=== PATIENT | female | born 1950 | race Caucasian/White ===

== ENCOUNTER → 2023-09-07 | Outpatient (CLI) | payer MEDICARE, BC ==
--- NOTE | 2023-09-07 11:03 | FL ---
EXAMINATION TYPE: FL barium swallow DATE OF EXAM: 09/07/2023 CLINICAL INDICATION: 73-year-old female R1 3.10, unspecified dysphagia. Patient with history of gastr ectomy and hiatal hernia repair 11-13 years ago experiencing difficulty swallowing with food sticking in the mid chest with reflux. COMPARISON: Total Fluoroscopy Time: 1 minute 56 seconds dap 549.40 mGycm2 49 images obtained. FINDINGS: The swallowing mechanism is normal and hypopharyngeal anatomy is preserved. There is normal course and caliber of the thoracic esophagus but with moderate tertiary peristaltic w aves distal half of the esophagus. We note a sliding hiatal hernia which is moderate to large in size. When the patient is prone/supine, it consists of nearly 2/3 of the stomach in the lower chest. No abnormal narrowing. Given single contrast technique, no evident suspicious filling defect or mucos al lesion is encountered. There is severe gastroesophageal reflux demonstrated. IMPRESSION: 1. Moderate to large hiatal hernia. This is a sliding hiatal hernia which can encompass nearly 2/3 of the stomach. Postsurgical change of previous sleeve gastrectomy. Severe GERD. 2. Mild to moderate esophageal dysmotility. No stricture or obvious other abnormality on single contr ast study.
== END | disposition home or self-care (01) ==
LOC: RADUSWWP 08:43
PROVIDERS: ATTEND Family Medicine
DX: K44.9 Diaphragmatic hernia without obstruction or gangrene (principal); K22.4 Dyskinesia of esophagus; K21.9 Gastro-esophageal reflux disease without esophagitis; R13.10 Dysphagia, unspecified; Z98.84 Bariatric surgery status
CPT/HCPCS: 74220

== ENCOUNTER → 2023-12-27 | Outpatient (CLI) | payer MEDICARE, BC ==
[2023-12-27 16:34] LABS: INR 0.9 (<1.2); Partial Thromboplastin Time 23.4 sec (22.0-30.0); Prothrombin Time 10.1 sec (10.0-12.5)
[2023-12-28 02:19] LABS: HCT 41.3 % (37.2-46.3); HGB 13.3 g/dL (12.0-15.0); MCH 31.8 pg (27.0-32.0); MCHC 32.2 g/dL (32.0-37.0); MCV 98.8 FL (80.0-97.0); Mean Platelet Volume 11.5 FL (9.5-12.2); NRBC Per 100 WBC 0 X 10*3/uL (0.00-0.01); Platelet Count 161 X 10*3/uL (140-440); RBC 4.18 X 10*6/uL (4.10-5.20); RDW 15.9 % (11.5-14.5); WBC 7.42 X 10*3/uL (4.50-10.00)
[2023-12-28 03:34] LABS: Prealbumin 20.1 mg/dL (18.0-42.0)
[2023-12-28 04:37] LABS: ALT 14 U/L (8-44); AST 19 U/L (13-35); Albumin 3.9 g/dL (3.8-4.9); Albumin/Globulin Ratio 1.95 Ratio (1.60-3.17); Alkaline Phosphatase 88 U/L (41-126); BUN/Creat Ratio 23.38 Ratio (12.00-20.00); Blood Urea Nitrogen 18.7 mg/dL (9.0-27.0); Calcium 8.8 mg/dL (8.7-10.3); Carbon Dioxide 20.5 mmol/L (21.6-31.8); Chloride 110 mmol/L (96-109); Chol/HDL Ratio 3.49 Ratio; Glucose 88 mg/dL (70-110); LDL Cholesterol,Calculated 124.2 mg/dL (0.0-131.0); Phosphorus 3.1 mg/dL (2.4-5.1); Sodium 143 mmol/L (135-145); Total Bilirubin <0.2 mg/dL (0.3-1.2); Total Protein 5.9 g/dL (6.2-8.2)
[2023-12-28 05:09] LABS: % Iron Saturation 15.47 (12.00-45.00); Iron 54 UG/DL (50-170); Total Iron Binding Capacity 349 UG/DL (228-460)
[2023-12-29 11:37] LABS: Vitamin A 50 ug/dL (38-106)
[2023-12-29 11:44] LABS: Vit B1(Thiamine) 45 ug/L (38-122)
[2023-12-30 10:19] LABS: Anabasine Urine <2.0 ng/mL (<2.0)
[2024-01-04 19:38] LABS: Selenium 77 mcg/L (63-160)
[2024-01-08 17:49] LABS: Zinc, Serum 70 ug/dL (60-130)
== END ==
LOC: LABPAT 15:11
PROVIDERS: ATTEND Surgery Plastic and Reconstructive Surgery
DX: E89.1 Postprocedural hypoinsulinemia (principal); E66.01 Morbid (severe) obesity due to excess calories; D50.8 Other iron deficiency anemias; K91.2 Postsurgical malabsorption, not elsewhere classified; E44.0 Moderate protein-calorie malnutrition; E45 Retarded development following protein-calorie malnutrition; E55.9 Vitamin D deficiency, unspecified; K74.1 Hepatic sclerosis; N19 Unspecified kidney failure; T56.894A Toxic effect of other metals, undetermined, initial encounter; K50.90 Crohn's disease, unspecified, without complications; E46 Unspecified protein-calorie malnutrition
CPT/HCPCS: 80053; 80061; 80307; 80323; 82306; 82525; 82607; 82728; 82746; 83036; 83540; 83550; 83735; 83970; 84100; 84134; 84255; 84425; 84443; 84590; 84630; 85027; 85610; 85730; 93005

== ENCOUNTER → 2023-12-27 | Outpatient (CLI) | payer MEDICARE, BC ==
[2023-12-27 14:23] VITALS: BP 142/79; PULSE 52; RESP 16; TEMP 98.1; BMI 38.6
--- NOTE | 2023-12-27 14:54 | P.HPBAR ---
Bariatric H&P - History & Physicial H&P Date: 12/27/23 History & Physicial: Visit/CC: new pt Patient initial contact: Initial weight: 98.883 kg Initial weight in pounds: 218.00 Height: 5 ft 3 in Initial BMI: 38.6 Last weight: Current weight: 98.883 kg Current weight in pounds: 218.00 Current BMI: 38.6 [place] body weight (based on NIH guidelines): 52.163 kg Excess body weight loss: 0.0% The patient is a 73 year-old F who presents for Bariatric Assessment. She has prior sleeve and has large hiatal hernia with stomach incorporated in chest. Highest weight is 275. Lowest 175 pounds. She is 40 pounds overweight. She has new PCP. She has much troubles with eating. She has treid weight watchers. Full labs and urine. Recommend dietitian consult. FU after labs. EKG advised. Will need hiatal hernia repair. She made prayer quilts for staff. Past Medical History Past Medical History: GERD/Reflux, Osteoarthritis (OA) Additional Past Medical History / Comment(s): kidney stones, Ureteral Stent with removal, hiatal hernia History of Any Multi-Drug Resistant Organisms: None Reported Past Surgical History: Bariatric Surgery, Cholecystectomy, Tubal Ligation Additional Past Surgical History / Comment(s): cataracts sx both eyes, skin disorder removed from left eye, Gastric sleeve 04-09-2012, Lithotripsy with ureteral stent and removal, Pain Procedures- Lumbar NATI. Past Anesthesia/Blood Transfusion Reactions: Postoperative Nausea & Vomiting (PONV) Past Psychological History: No Psychological Hx Reported Smoking Status: Former smoker Past Alcohol Use History: Rare Past Drug Use History: None Reported - Past Family History Mother Family Medical History: Hypertension Father Additional Family Medical History / Comment(s): Leukemia Surgical - Exam Vital Signs Temp Pulse Resp BP 98.1 F 52 L 16 142/79 12/27/23 14:04 12/27/23 14:04 12/27/23 14:04 12/27/23 14:04 Bariatric Checklist Checklist: Plan: Checklist: EGD: 1. Hiatal hernia: 2. H. Pylori: HgbA1c: Vitamin D: Smoking: Primary care physician referral: ambreen villeda Psychiatry clearance: Cardiology clearance: Sleep study: Diet journal: VTE risk score: VTE risk level: Rehab needs at discharge:
== END ==
LOC: BARWHC3 13:31
PROVIDERS: ATTEND Surgery Plastic and Reconstructive Surgery
DX: E66.01 Morbid (severe) obesity due to excess calories (principal); Z68.38 Body mass index [BMI] 38.0-38.9, adult; Z88.5 Allergy status to narcotic agent; Z88.2 Allergy status to sulfonamides; Z88.1 Allergy status to other antibiotic agents
CPT/HCPCS: 99211

== ENCOUNTER → 2024-01-08 | Outpatient (CLI) | payer MEDICARE, BC ==
[2024-01-08 13:42] VITALS: BP 148/82; PULSE 72; RESP 16; TEMP 98.2
[2024-01-08] MEDS: CYANOCOBALAMIN 1,000 MCG/ML 1 ML VIAL IM NR (13:42)
== END ==
LOC: PROCWHC3 12:58
PROVIDERS: ATTEND Surgery Plastic and Reconstructive Surgery
DX: D51.9 Vitamin B12 deficiency anemia, unspecified (principal)
CPT/HCPCS: 96372

== ENCOUNTER → 2024-01-08 | Outpatient (CLI) | payer MEDICARE, BC ==
[2024-01-08 13:55] VITALS: BMI 38.0
== END | disposition home or self-care (01) ==
LOC: BARWHC3 12:49
PROVIDERS: ATTEND Surgery Plastic and Reconstructive Surgery
DX: E66.01 Morbid (severe) obesity due to excess calories (principal); Z88.2 Allergy status to sulfonamides; Z88.1 Allergy status to other antibiotic agents; Z88.5 Allergy status to narcotic agent; Z68.38 Body mass index [BMI] 38.0-38.9, adult
CPT/HCPCS: 97802

== ENCOUNTER → 2024-01-17 | Outpatient (CLI) | payer MEDICARE, BC ==
[2024-01-17 14:48] VITALS: BP 144/92; PULSE 84; RESP 16; TEMP 97.7; BMI 38.2
--- NOTE | 2024-01-17 15:07 | P.BASOAP ---
Subjective Progress Note Date: 01/17/24 She has a large hiatal hernia and had troubles eating meat. Labs reviewed. EKG is normal. She needs a hiatal hernia repair for incarcerated stomach.She is elevated risk. Vitamin D check. SHe got Vitamin B12. Objective - Vital Signs Vital signs: Vital Signs Temp 97.7 F 01/17/24 14:39 Pulse 84 01/17/24 14:39 Resp 16 01/17/24 14:39 BP 144/92 01/17/24 14:39 Pulse Ox FiO2 Intake & Output 01/16/24 01/17/24 01/17/24 18:59 06:59 18:59 Weight 97.976 kg Assessment/Plan Plan: Date: 01/17/24 Initial Weight: 98.883 kg Initial BMI: 38.6 Current Weight: 97.976 kg Current BMI: 38.2 Type of Surgery: Total Volume in Band: Previous Volume: Volume Removed: Volume Added: Band Size:
== END ==
LOC: BARWHC3 13:35
PROVIDERS: ATTEND Surgery Plastic and Reconstructive Surgery
DX: E66.01 Morbid (severe) obesity due to excess calories (principal); K44.9 Diaphragmatic hernia without obstruction or gangrene; Z68.38 Body mass index [BMI] 38.0-38.9, adult; Z88.2 Allergy status to sulfonamides; Z88.5 Allergy status to narcotic agent; Z88.1 Allergy status to other antibiotic agents
CPT/HCPCS: 99211

== ENCOUNTER → 2024-05-01 | Outpatient (CLI) | payer MEDICARE, BC ==
[2024-05-01 16:06] VITALS: BP 153/88; PULSE 92; RESP 16; TEMP 98.7; BMI 37.7
--- NOTE | 2024-05-01 16:38 | P.BASOAP ---
Subjective Progress Note Date: 05/01/24 DATE: 05/01/24 CHIEF COMPLAINT: Morbid obesity HISTORY OF PRESENT ILLNESS: Aleshia Ignacio is a 74-year-old female who comes with lifelong morbid obesity. She has pre-existing history of sleeve gastrectomy. Her highest weight was 275 pounds. She comes in with gastroesophageal reflux disease. After having adjusted medications, she reports her symptoms have somewhat improved. She still eager to have surgical intervention. She reports that she does not drink enough water. She is ingesting at least 130 g of protein daily. Reports she starts eating early. She has early start 3:30-5:30 am. She drinks coffee. She has personal history of deep venous thrombosis. She presents due to complications from a sleeve gastrectomy. At height of 5 feet 3 inches, her ideal body weight is 140 pounds. Her highest weight was 275 pounds, BMI 48.8. Today she comes in 213 pounds. She has lost 62 pounds lifetime. Lifetime percent excess weight loss 26%. She is 73 pounds overweight. Her body mass index today is 37.7 PAST MEDICAL HISTORY: 1. Morbid obesity due to excess calories 2. Body mass index of 48.8 3. Osteoarthritis of the knees. 4. Osteoarthritis of the lower back. 5. Hypertensive heart disease. 6. Gastroesophageal reflux disease 7. Kidney stone 8. Postop nausea vomiting PAST SURGICAL HISTORY: 1. Cholecystectomy 2. Gastric sleeve 3. Tubal ligation HOME MEDICATIONS: Home Medications Medication Instructions Recorded Confirmed Ergocalciferol [Vitamin D2 (1250 50,000 unit PO MO 01/01/24 05/06/24 Mcg = 28274 Iu)] Omeprazole Magnesium [PriLOSEC OTC] 40 mg PO QAM 04/30/24 05/06/24 Previous Rx's Medication Instructions Recorded Ondansetron Odt [Zofran Odt] 4 mg PO Q8HR PRN #9 tab 05/06/24 Simethicone 40 mg/0.6 ml Drops 40 mg PO PCHS PRN #30 ml 05/06/24 [Mylicon Drops] bisacodyL [Dulcolax] 5 mg PO DAILY PRN #10 tab 05/06/24 Acetaminophen Tab [Tylenol] 1,000 mg PO Q6HR PRN #30 tablet 05/07/24 ALLERGIES: Allergies Allergy/AdvReac Type Severity Reaction Status Date / Time codeine Allergy Nausea & Verified 05/06/24 08:19 Vomiting sulfamethoxazole Allergy Rash/Hives Verified 05/06/24 08:19 [From Bactrim] trimethoprim [From Bactrim] Allergy Rash/Hives Verified 05/06/24 08:19 SOCIAL HISTORY: Past tobacco use. FAMILY HISTORY: No family history of ulcerative colitis disease or Crohn's disease. Family history of morbid obesity. No lupus in the family. No reports of stomach or esophageal cancer. REVIEW OF ORGAN SYSTEMS: CONSTITUTIONAL: At height of 5 feet 3 inches, her ideal body weight is 140 pounds. Her highest weight was 275 pounds, BMI 48.8. Today she comes in 213 pounds. She has lost 62 pounds lifetime. Lifetime percent excess weight loss 26%. She is 73 pounds overweight. Her body mass index today is 37.7 HEENT: Denies any active troubles with vision or hearing. ENDOCRINE: Denies diabetes. Denies hypothyroidism. CARDIOVASCULAR: Past reports of palpitations or heart attacks or chest pain. RESPIRATORY: Has daytime somnolence. GASTROINTESTINAL: Denies any bright red blood per rectum. Has gastroesophageal reflux disease. MUSCULOSKELETAL: Has lower back pain and joint pain. Has osteoarthritis of the knees. NEURO: No headaches. No seizure disorders. PSYCH: Has depression. No suicidal ideation. RHEUMATOLOGIC: No lupus. No rheumatoid arthritis. HEMATOLOGIC: Denies any abnormal bleeding or bruising. Personal history of DVTs. SKIN: Has rash. No skin cancer. PHYSICAL EXAM: VITAL SIGNS: Height 5 foot 3 inches, weight 213 pounds. BMI 37.7 Vital Signs Temp 98.7 F 05/01/24 15:50 Pulse 92 05/01/24 15:50 Resp 16 05/01/24 15:50 BP 153/88 05/01/24 15:50 Pulse Ox FiO2 GENERAL: Well-developed in no acute distress. HEENT: No scleral icterus. Extraocular movements grossly intact. Hears conversational speech. No nasal drainage. NECK: Supple without lymphadenopathy. CHEST: Nonlabored respirations with equal bilateral excursions. CARDIOVASCULAR: Regular rate and regular rhythm. Distal 2+ pulses. ABDOMEN: Obese, soft, nontender, nondistended. MUSCULOSKELETAL: No clubbing, cyanosis. NEURO: No focal or lateralizing signs. Cranial nerves 2 through 12 grossly within normal limits. PSYCH: Appropriate affect. Alert and oriented to person, place and time. SKIN: Good skin turgor. Well perfused. LABS: Reviewed. Vitamin B12 low. Vitamin D low. PTH elevated EKG: Normal sinus rhythm December 2023 STUDIES: Swallow from September 2023 reviewed demonstrates a large hiatal hernia with moderate esophageal dysmotility. This is my independent interpretation. ASSESSMENT: 1. Morbid obesity due to excess calories 2. Body mass index of 48.8 3. Osteoarthritis of the knees. 4. Osteoarthritis of the lower back. 5. Hypertensive heart disease. 6. Gastroesophageal reflux disease 7. Kidney stone 8. Postop nausea vomiting 9. Dietary surveillance counseling 10. Status post sleeve gastrectomy. 11. Vitamin B12 deficiency 12. Vitamin D deficiency 13. Secondary hyperparathyroidism 14. Personal history of deep venous thrombosis PLAN: 1. Overall, she is ingesting moderate amount of proteins at least 130 g. Recommend decrease protein intake 90 g daily. 2. Patient reports moderate to severe gastroesophageal reflux disease. She is seeking surgical invention. Robotic hiatal hernia described. 3. Patient is elevated risk for complications due to pre-existing sleeve gastrectomy. 4. Patient hospitalization described. 5. Dietary surveillance and counseling described regarding hiatal hernia repair Objective - Vital Signs Vital signs: Vital Signs Temp 98.7 F 05/01/24 15:50 Pulse 92 05/01/24 15:50 Resp 16 05/01/24 15:50 BP 153/88 05/01/24 15:50 Pulse Ox FiO2 Intake & Output 04/30/24 05/01/24 05/01/24 18:59 06:59 18:59 Weight 96.615 kg Assessment/Plan Plan: Date: 05/01/24 Initial Weight: 98.883 kg Initial BMI: 38.6 Current Weight: 96.615 kg Current BMI: 37.7 Type of Surgery: Total Volume in Band: Previous Volume: Volume Removed: Volume Added: Band Size:
== END ==
LOC: BARWHC3 15:17
PROVIDERS: ATTEND Surgery Plastic and Reconstructive Surgery
DX: E66.01 Morbid (severe) obesity due to excess calories (principal); M17.11 Unilateral primary osteoarthritis, right knee; K21.9 Gastro-esophageal reflux disease without esophagitis; I11.9 Hypertensive heart disease without heart failure; N20.0 Calculus of kidney; E53.8 Deficiency of other specified B group vitamins; E55.9 Vitamin D deficiency, unspecified; E03.9 Hypothyroidism, unspecified; Z86.718 Personal history of other venous thrombosis and embolism; Z90.3 Acquired absence of stomach [part of]; Z71.3 Dietary counseling and surveillance; Z68.42 Body mass index [BMI] 45.0-49.9, adult; Z88.5 Allergy status to narcotic agent; Z88.2 Allergy status to sulfonamides
CPT/HCPCS: 99211

== ENCOUNTER → 2024-05-02 | Outpatient (CLI) | payer MEDICARE, BC ==
[2024-05-02 14:53] LABS: Basophils # (A) 0.06 X 10*3/uL (0.00-0.10); Eosinophils # (A) 0.14 X 10*3/uL (0.04-0.35); Eosinophils % (A) 2.4 %; HCT 44.5 % (37.2-46.3); HGB 14.6 g/dL (12.0-15.0); Lymphocytes # (A) 2.03 X 10*3/uL (0.90-5.00); Lymphocytes % (A) 34.4 %; MCH 31.7 pg (27.0-32.0); MCHC 32.8 g/dL (32.0-37.0); MCV 96.5 FL (80.0-97.0); Mean Platelet Volume 10.9 FL (9.5-12.2); Monocytes # (A) 0.63 X 10*3/uL (0.20-1.00); Monocytes % (A) 10.7 %; NRBC Per 100 WBC 0 X 10*3/uL (0.00-0.01); Neutrophils # (A) 3.03 X 10*3/uL (1.80-7.70); Neutrophils % (A) 51.3 %; Platelet Count 204 X 10*3/uL (140-440); RBC 4.61 X 10*6/uL (4.10-5.20); RDW 14.1 % (11.5-14.5)
[2024-05-02 14:58] LABS: ALT 21 U/L (8-44); AST 23 U/L (13-35); Albumin/Globulin Ratio 1.74 Ratio (1.60-3.17); Alkaline Phosphatase 94 U/L (41-126); Blood Urea Nitrogen 23.8 mg/dL (9.0-27.0); Calcium 9.4 mg/dL (8.7-10.3); Carbon Dioxide 25.7 mmol/L (21.6-31.8); Chloride 107 mmol/L (96-109); Globulin 2.3 g/dL (1.6-3.3); Glucose 107 mg/dL (70-110); Potassium 4.6 mmol/L (3.5-5.5); Sodium 142 mmol/L (135-145); Total Bilirubin 0.2 mg/dL (0.3-1.2); Total Protein 6.3 g/dL (6.2-8.2)
== END | disposition home or self-care (01) ==
LOC: LABPAT 10:51
PROVIDERS: ATTEND Surgery Plastic and Reconstructive Surgery
DX: Z01.812 Encounter for preprocedural laboratory examination (principal)
CPT/HCPCS: 80053; 85025; 86850; 86900; 86901

== ENCOUNTER 2024-05-06 07:36 | Day surgery (SDC) | payer MEDICARE, BC ==
[2024-04-30 12:31] VITALS: BMI 37.7
--- NOTE | 2024-05-06 07:34 | P.GSHP ---
History of Present Illness H&P Date: 05/06/24 CHIEF COMPLAINT: Paraesophageal hiatal hernia with gastroesophageal reflux disease. HISTORY OF PRESENT ILLNESS: The patient is a 74-year-old female who presents with symptomatic paraesophageal hiatal hernia over one year with gastroesophageal reflux disease. She has completed upper endoscopy workup. Now she presents for surgical intervention. PAST MEDICAL HISTORY: Please see list. PAST SURGICAL HISTORY: Please see list. MEDICATIONS: Please see list. ALLERGIES: Please see list. SOCIAL HISTORY: No illicit drug use FAMILY HISTORY: No reports of Crohn disease or ulcerative colitis. REVIEW OF ORGAN SYSTEMS: CONSTITUTIONAL: No reports of fevers or chills. GI: Denies any blood in stools or constipation. PHYSICAL EXAM: VITAL SIGNS: Stable GENERAL: Well-developed pleasant and in no acute distress. HEENT: No scleral icterus. Extraocular movements grossly intact. Moist buccal mucosa. NECK: Supple without lymphadenopathy. CHEST: Unlabored respirations. Equal bilateral excursions. CARDIOVASCULAR: Regular rate and rhythm. Distal 2+ pulses. ABDOMEN: Soft, nondistended. No peritoneal signs. MUSCULOSKELETAL: No clubbing, cyanosis, or edema. SKIN: Well-perfused. Good skin turgor. REPORTS: Upper endoscopy demonstrates paraesophageal hiatal hernia BARIUM SWALLOW: Images reviewed demonstrating paraesophageal hiatal hernia. This is my independent interpretation. REPORTS: Cardiology risk assessment obtained. Please see chart. ASSESSMENT: 1. Diaphragmatic paraesophageal hiatal hernia with severe gastroesophageal reflux disease. PLAN: 1. Recommend proceeding with a robotic paraesophageal hiatal hernia with possible mesh. 2. Benefits and risks of surgical intervention was discussed including possibility of open technique. 3. Inpatient hospitalization recommended of 2 nights 4. DVT prophylaxis. 5. Antibiotic prophylaxis. 6. She has also completed a very low caloric high-protein diet to address underlying hepatomegaly. 7. Non narcotic pain management including abdominal wall block described 8. Blood sugar glucose described. 9. Weight loss management described. 10. Patient is elevated risk due to pre-existing weight loss surgery including BMI over 35 Past Medical History Past Medical History: Cancer, GERD/Reflux, Osteoarthritis (OA) Additional Past Medical History / Comment(s): Current left side scitica. Hx skin cancer on face by left eye, removed. Hx kidney stones, hiatal hernia. History of Any Multi-Drug Resistant Organisms: None Reported Past Surgical History: Bariatric Surgery, Cholecystectomy, Tubal Ligation Additional Past Surgical History / Comment(s): Bilateral cataract surgery, skin cancer removed from face by left eye, gastric sleeve 04-09-2012, lithotripsy with ureteral stent placement and later removed, Pain Procedures. Past Anesthesia/Blood Transfusion Reactions: Postoperative Nausea & Vomiting (PONV) Smoking Status: Former smoker - Past Family History Mother Family Medical History: GI Bleed, Hypertension Additional Family Medical History / Comment(s): . Father Family Medical History: Cancer Additional Family Medical History / Comment(s): Leukemia. Medications and Allergies Home Medications Medication Instructions Recorded Confirmed Type Acetaminophen Tab [Tylenol Tab] 1,000 mg PO Q6HR PRN 12/27/23 05/01/24 History Ergocalciferol [Vitamin D2 (1250 50,000 unit PO MO 01/01/24 05/01/24 History Mcg = 57059 Iu)] Ibuprofen [Advil] 200 mg PO QID PRN 04/30/24 05/01/24 History Omeprazole Magnesium [PriLOSEC OTC] 40 mg PO QAM 04/30/24 05/01/24 History Allergies Allergy/AdvReac Type Severity Reaction Status Date / Time codeine Allergy Nausea & Verified 04/30/24 12:05 Vomiting sulfamethoxazole Allergy Rash/Hives Verified 04/30/24 12:05 [From Bactrim] trimethoprim [From Bactrim] Allergy Rash/Hives Verified 04/30/24 12:05
[~2024-05-06 07:36] MED LIST: HYDROmorphone 0.5 MG/0.5 ML SYRINGE IVP PRN; ONDANSETRON 4 MG/2 ML VIAL IVP PRN
[2024-05-06] MEDS: IV FLUID CONTINUATION 1,000 ML IV ONE (08:10)
[2024-05-06] MEDS: ACETAMINOPHEN TAB 500 MG TAB PO PRN (08:52)
[2024-05-06] MEDS: LACTATED RINGERS 1,000 ML IV SCH (08:52)
[2024-05-06] MEDS: ONDANSETRON 4 MG/2 ML VIAL IVP ONE (08:53)
[2024-05-06] MEDS: DEXAMETHASONE SOD PHOSPHATE 4 MG/ML 1 ML VIAL IV ONE (08:53)
[2024-05-06] MEDS: HEPARIN SODIUM,PORCINE 5,000 UNIT/ML 1 ML VIAL SQ PRN (08:54)
[2024-05-06] MEDS ORDERED: diphenhydrAMINE 50 MG/ML 1 ML VIAL ONE (10:07)
[2024-05-06] MEDS ORDERED: ROCURONIUM 10 MG/ML (5 ML VIAL) IV ONE (10:07)
[2024-05-06] MEDS ORDERED: fentaNYL (PF) 50 MCG/ML 2 ML AMP ONE (10:07)
[2024-05-06] MEDS ORDERED: LIDOCAINE 1% INJ 10MG/ML (20 ML MDV) ONE (10:07)
[2024-05-06] MEDS ORDERED: GLYCOPYRROLATE 0.2 MG/ML 2 ML VIAL ONE (10:07)
[2024-05-06] MEDS ORDERED: NEOSTIGMINE 1 MG/ML 10 ML VIAL ONE (10:07)
[2024-05-06] MEDS ORDERED: PROPOFOL 10 MG/ML 20 ML VIAL IV ONE (10:07)
[2024-05-06] MEDS ORDERED: MIDAZOLAM 2 MG/2 ML VIAL ONE (10:07)
[2024-05-06] MEDS ORDERED: SUCCINYLCHOLINE CHLORIDE 200 MG/10 ML VIAL IV ONE (10:07)
[2024-05-06] MEDS: LIDOCAINE 1%-EPI 1:100,000 20 ML VIAL SQ ONE (10:40)
[2024-05-06] MEDS: LACTATED RINGERS 1,000 ML IV ONE (11:48)
[2024-05-06] MEDS ORDERED: NALOXONE 0.4 MG/ML 1 ML VIAL IV PRN (12:34)
[2024-05-06] MEDS: ONDANSETRON 4 MG/2 ML VIAL IVP SCH (14:52)
[2024-05-06] MEDS: ACETAMINOPHEN IV (For NPO) 1,000 MG in EMPTY BAG 1 BAG IVPB SCH (15:25)
--- NOTE | 2024-05-06 15:50 | FL ---
EXAMINATION TYPE: FL esophagus cervic/pharynx DATE OF EXAM: 05/06/2024 ESOPHAGRAM: CLINICAL HISTORY: Hiatal hernia with Cosmo fundoplication surgery earlier today. History of gastric sleeve surgery in the past. TECHNIQUE: Limited esophagram is performed utilizing 20 oz of Isovue-370. A total of 52 seconds of f luoroscopic time was utilized during procedure and 23 images obtained. TOTAL DAP = 1555.07. Comparison: Prior esophagram September 07, 2023. FINDINGS: The patient swallowed contrast without difficulty or delay. Esophageal peristalsis and mo tility are within normal limits. There is good flow of contrast along the diaphragmatic hiatus into t he stomach, there is no evidence of contrast extravasation to suggest leak. No persistent hiatal christian ia is seen. Patient remains asymptomatic. Gastric sleeve is noted. IMPRESSION: No evidence of leak or significant obstruction status post Davey fundoplication surgery earlier today. [facility], , 05/06/2024 3:47 PM
[2024-05-06] MEDS: fentaNYL PCA 500 MCG/50 ML BAG IV SCH (16:14)
[2024-05-06] MEDS: DEXAMETHASONE SOD PHOSPHATE 4 MG/ML 1 ML VIAL IVP SCH (17:46)
[2024-05-06] MEDS: METOCLOPRAMIDE 5 MG/ML 2 ML VIAL IVP SCH (17:58)
[2024-05-06] MEDS: DEXAMETHASONE SOD PHOSPHATE 10 MG/ML 1 ML VIAL IVP STA (17:58)
[2024-05-06] MEDS: D5-0.45% NACL WITH KCL 20MEQ/L 1,000 ML IV SCH (17:58)
[2024-05-06] MEDS: KETOROLAC 15 MG/ML 1 ML VIAL IVP SCH (17:59)
[2024-05-06] MEDS: HEPARIN SODIUM,PORCINE 5,000 UNIT/ML 1 ML VIAL SQ SCH (20:36)
--- NOTE | 2024-05-06 20:39 | P.OP ---
Date of Procedure: 05/06/24 Description of Procedure: SURGEON: ARTEM MARTIN MD PREOPERATIVE DIAGNOSES: 1. Gastroesophageal reflux disease, with erosive esophagitis 2. Paraesophageal hiatal hernia, midline, recurrent 3. Morbid obesity due to excess calories, BMI of 37.2. 4. History of sleeve gastrectomy 5. Postop nausea vomiting 6. Complications from sleeve gastrectomy. 7. History of kidney stones 8. Dysphagia 9. Esophageal dysmotility POSTOPERATIVE DIAGNOSES: 1. Gastroesophageal reflux disease, with erosive esophagitis 2. Paraesophageal hiatal hernia, midline, recurrent with incarceration, 4 x 6 cm, type III 3. Morbid obesity due to excess calories, BMI of 37.2. 4. History of sleeve gastrectomy 5. Postop nausea vomiting 6. Complications from sleeve gastrectomy. 7. History of kidney stones 8. Dysphagia 9. Esophageal dysmotility OPERATION: 1. Robotic-assisted da German Xi laparoscopic reduction and repair of recurrent incarcerated paraesophageal hiatal hernia, 4 x 6 cm, with Lynn Biopatch A 8 x 8 cm. 2. Intraoperative esophagogastroscopy 3. Placement of esophageal bougie, 56 [place] ANESTHESIA: General with local anesthetic. ESTIMATED BLOOD LOSS: 5 mL Pathology: None COMPLICATIONS: None. FINDINGS: 1. GE junction at 40 cm from the incisors 2. Sleeve gastrectomy 3. Incarcerated upper pole of the stomach within the mediastinum with moderate dissection performed with incision of mediastinal hernia sac, type III paraesophageal hiatal hernia 4. 6 cm paraesophageal incarcerated diaphragmatic hiatal hernia length with moderate dissection into the mediastinum 5. Lynn Biopatch A onlay mesh placed. 6. Identified previous hiatal hernia repair with retained suture consistent with recurrent incarcerated hiatal hernia 7. Reduction of incarcerated 7 cm superior pole of stomach from previously gastrectomy 8. Intra-abdominal esophageal length over 3 cm obtained INDICATIONS: The patient is a 74-year-old female who presents with dysphagia, history of sleeve gastrectomy, gastroesophageal reflux recalcitrant to medical therapy with a symptomatic diaphragmatic hiatal hernia. Preoperative workup including upper endoscopy demonstrated hiatal hernia with erosive esophagitis. Given the severity of her symptoms, she had elected for surgical intervention. Benefits and risks including bleeding, infection, recurrence, dysphagia, injury to the lung, need for further surgery was described at length. Informed consent was obtained. DESCRIPTION: The patient was brought into the operating room and placed in supine position. Preoperatively she had received heparin subcutaneously for DVT prophylaxis. After general induction, the abdomen was prepped and draped in standard sterile fashion. The patient had previously voided prior to coming to the operating room. [place] draping was placed along the abdomen. A timeout protocol was confirmed with the surgical team, for which the patient's name, procedure to be performed including DVT prophylaxis with bilateral SCDs, and preoperative antibiotics were also confirmed. A robotic da German Xi system was prepped and primed. At 13 cm from the xiphoid to just below the umbilicus, proposed port sites were marked with indelible marker along the left axillary line, left mid-clavicular line with each ports were marked 10 cm from each other. A 5 mm 0 degrees laparoscopic trocar entry was performed along the left upper quadrant. The abdomen was insufflated to 15 mmHg pressure was tolerated well. Diagnostic laparoscopy demonstrated no injury to bowel, viscera. Liver edge was sharp. Next, one 8 mm robotic port was placed along the right upper abdomen. An 8-mm port was were placed along the left lateral abdominal wall. The camera 8-mm port was maintained along the epigastrium. Another 12 mm port was placed along the left upper abdominal wall after exchanging the 5 mm port. Please note that the ports were placed at least 20 cm away from the target anatomy. Care was taken to check that each robotic arm were safely away from collision with the bed or the patient. The patient was repositioned in reverse Trendelenburg position at 25-degrees after lowering the bed. The robot was docked above the left side of the patient. Using a grasper for arm 3, a grasper for arm 1, including vessel sealer for arm 2, the robotic system was docked and primed as described. Instruments were interchanged by the assistant accounting manager. I had sat at the console. Initial attention was brought to hiatus. Circumferentially the dissection at the hiatus was performed using vessel sealer including blunt dissection. Previous retained suture was found along the hiatus consistent with a prior repair. The hiatus hernia recurred anteriorly including a retained sac acting as a lead point for recurrence. The remnant gastrohepatic ligament was cleaved using a vessel sealer. Next, the phrenoesophageal ligament was mobilized and the distal esophagus was mobilized circumferentially. An incarcerated hernia sac was found into the mediastinum. As a result, deep dissection well into the mediastinum was needed to free the proximal sleeve gastrectomy including the mid to distal esophagus with retained gastric funduc consistent with a type III hiatal hernia. The left and right crura was identified. Significant mobilization of the distal to mid esophagus into the mediastinum was performed. Circumferentially, the hernia sac was incised and brought into the abdominal cavity. Care was taken to avoid any gastrotomy to the incarcerated upper pole of the stomach. The measured defect was measured with a ruler consistent with 6 cm axial length and 4 cm in width. After extensive dissection, the distal esophagus at least 3 cm was brought into the abdominal cavity. Once the hiatus and crura was dissected, nonabsorbable 2-0 VLOC suture was placed as a running suture to re-approximate the diaphragmatic hiatus posteriorly. To buttress the repair, a Lynn Biopatch A was prepared along the back table and cut in a half blue-hole fashion as to reinforce the repair as an underlay. The mesh was resized posteriorly placed along the crural repair and tagged using nonabsorbable 2-0 VLOC. I went to the head of the bed to perform intraoperative esophagogastroduodenoscopy. An Olympus gastroscope was passed through posterior oropharynx, where the squamocolumnar junction was confirmed at 40 cm from the incisors. The hiatus repair was confirmed from the incisors. The stomach was entered. The scope was removed. A 57 [place] bougie was placed into the esophagus to address esophageal dysmotility. The bougie was removed. The scope was reintroduced. The stomach had been desufflated. No evidence of leaks were found or mucosal defects of the esophagus or stomach. This concluded the endoscopic portion of the case. The robot was undocked from the patient. I re-scrubbed into the case. All instruments and pneumoperitoneum were evacuated from the abdominal cavity. The incisions were cleansed with dilute hydrogen peroxide with saline solution. Incisions were reapproximated using 4-0 Monocryl in an interrupted subcuticular fashion. The 12-mm port site fascial defect was less than 8 mm in size. Exofin was applied to the skin. Local anesthetic was infiltrated in all wounds for postop analgesia. Multiple intra-abdominal films were obtained. At the end of the procedure, needle, sponge, and instrument count was verified correct by the director medical surgical. The patient had tolerated the procedure well and was taken to the postanesthesia unit in stable condition. Intraoperative films were reviewed with the patient's family who were pleased with the level of care. Plan - Discharge Summary Discharge Rx Participant: No New Discharge Prescriptions: No Action Acetaminophen Tab [Tylenol Tab] 1,000 mg PO Q6HR PRN PRN Reason: Pain Ergocalciferol [Vitamin D2 (1250 Mcg = 98820 Iu)] 50,000 unit PO MO Omeprazole Magnesium [PriLOSEC OTC] 40 mg PO QAM Ibuprofen [Advil] 200 mg PO QID PRN PRN Reason: Pain Discharge Medication List Acetaminophen Tab [Tylenol Tab] 1,000 mg PO Q6HR PRN 12/27/23 [History] Ergocalciferol [Vitamin D2 (1250 Mcg = 79071 Iu)] 50,000 unit PO MO 01/01/24 [History] Ibuprofen [Advil] 200 mg PO QID PRN 04/30/24 [History] Omeprazole Magnesium [PriLOSEC OTC] 40 mg PO QAM 04/30/24 [History]
[2024-05-07 08:17] VITALS: BP 131/75; PULSE 70; RESP 18; TEMP 97.8
--- NOTE | 2024-05-07 15:19 | P.DS ---
Providers Expected date of discharge: 05/07/24 Attending physician: Delma Watson Primary care physician: Kaylee Alexander Hospital Course: Discharge diagnosis 1. Gastroesophageal reflux disease, with erosive esophagitis 2. Paraesophageal hiatal hernia, midline, recurrent with incarceration, 4 x 6 cm, type III 3. Morbid obesity due to excess calories, BMI of 37.2. 4. History of sleeve gastrectomy 5. Postop nausea vomiting 6. Complications from sleeve gastrectomy. 7. History of kidney stones 8. Dysphagia 9. Esophageal dysmotility Hospital course The patient is a 74-year-old female who presents with dysphagia, history of sleeve gastrectomy, gastroesophageal reflux recalcitrant to medical therapy with a symptomatic diaphragmatic hiatal hernia. Patient is status post robotic assisted da German laparoscopic reduction and repair of recurrent incarcerated paraesophageal hiatal hernia with Antonito Biopatch. Patient tolerated surgery well. Pain is controlled. She is tolerating diet. Upper GI showed no evidence of leak or obstruction. She has been up and ambulating. She is afebrile. Denies any difficulty urinating. She is stable for discharge. Physician Senior Account Representative note has been reviewed by physician. Signing provider agrees with the documented findings, assessment, and plan of care. Patient Condition at Discharge: Stable Plan - Discharge Summary Discharge Rx Participant: No New Discharge Prescriptions: New bisacodyL [Dulcolax] 5 mg PO DAILY PRN #10 tab PRN Reason: Constipation Simethicone 40 mg/0.6 ml Drops [Mylicon Drops] 40 mg PO PCHS PRN #30 ml PRN Reason: Gas Ondansetron Odt [Zofran Odt] 4 mg PO Q8HR PRN #9 tab PRN Reason: Nausea Acetaminophen Tab [Tylenol] 1,000 mg PO Q6HR PRN #30 tablet PRN Reason: Pain Continue Ergocalciferol [Vitamin D2 (1250 Mcg = 89110 Iu)] 50,000 unit PO MO Omeprazole Magnesium [PriLOSEC OTC] 40 mg PO QAM Discontinued Acetaminophen Tab [Tylenol Tab] 1,000 mg PO Q6HR PRN PRN Reason: Pain Ibuprofen [Advil] 200 mg PO QID PRN PRN Reason: Pain Discharge Medication List Ergocalciferol [Vitamin D2 (1250 Mcg = 04121 Iu)] 50,000 unit PO MO 01/01/24 [History] Omeprazole Magnesium [PriLOSEC OTC] 40 mg PO QAM 04/30/24 [History] Ondansetron Odt [Zofran Odt] 4 mg PO Q8HR PRN #9 tab 05/06/24 [Rx] Simethicone 40 mg/0.6 ml Drops [Mylicon Drops] 40 mg PO PCHS PRN #30 ml 05/06/24 [Rx] bisacodyL [Dulcolax] 5 mg PO DAILY PRN #10 tab 05/06/24 [Rx] Acetaminophen Tab [Tylenol] 1,000 mg PO Q6HR PRN #30 tablet 05/07/24 [Rx] Follow up Appointment(s)/Referral(s): Delma Watson MD [STAFF PHYSICIAN] - 05/14/24 6:00 pm (Telehealth) Patient Instructions/Handouts: Hiatal Hernia (IP), Laparoscopic Hiatal Hernia Repair (GEN) Activity/Diet/Wound Care/Special Instructions: Liquid diet only for 2 weeks until 05/20/24 No lifting over 4 pounds in 4 weeks, 06/03/24 May shower No soaking in bath tubs for 2 weeks, 05/20/24 Please notify your surgeon if you develop nausea and vomiting including new onset of abdominal pain. Please ambulate at all times. Use Simethicone, Gas-X, Tylenol and ibuprofen or Aleve scheduled for the next 24-48 hours for best pain relief. Use ice along incisions for the today to prevent swelling. Please open, cut, crush pills larger than the size of a tic tack No carbonated beverages. No straws. Do not remove scopolamine patch for 3 days, if present Avoiding Gas Avoid drinking through a straw. Do not chew gum or tobacco. These actions cause you to swallow air, which produces excess gas in your stomach. Chew with your mouth closed. Avoid any foods that cause stomach gas and distention. These foods include corn, dried beans, peas, lentils, onions, broccoli, cauliflower and any food from the cabbage family. Avoid carbonated drinks, alcohol, citrus and tomato products. Carbonated drinks (sodas) are not allowed for the first six to eight weeks after surgery. After this time you can try them again in small amounts Clear Liquid Diet The first diet after surgery is the clear liquid diet. It includes the following liquids: Apple juice Cranberry juice Grape juice Chicken broth Beef broth Flavored gelatin (Jell-O) Decaf tea and coffee Caffeinated beverages are permitted based on tolerance [facility] Japanese ice Full Liquid Diet The full liquid diet contains anything on the clear liquid diet, plus: Milk, soy, rice and almond (no chocolate) Cream of wheat, cream of rice, grits Strained creamed soups (no tomato or broccoli) Vanilla and strawberry-flavored ice cream Sherbet Blended, custard styled or whipped yogurt (plain or vanilla only) Vanilla and butterscotch pudding (no chocolate or coconut) Nutritional drinks including Ensure, Boost, [place] Instant Breakfast (no chocolate-flavored) Note: Dairy products, such as milk, ice cream and pudding, may cause diarrhea in some people just after surgery. You may need to avoid milk products. If so, substitute them with lactose-free beverages, such as soy, rice, Lactaid or almond milks. Discharge Disposition: HOME SELF-CARE
== END 2024-05-07 13:57 | disposition home or self-care (01) ==
LOC: OR 07:36 → 4SSUR 11:41 → OR 05-07 13:57
PROVIDERS: ATTEND Surgery Plastic and Reconstructive Surgery
DX: K44.0 Diaphragmatic hernia with obstruction, without gangrene (principal); K21.00 Gastro-esophageal reflux disease with esophagitis, without bleeding; K22.10 Ulcer of esophagus without bleeding; E66.01 Morbid (severe) obesity due to excess calories; K22.4 Dyskinesia of esophagus; M19.90 Unspecified osteoarthritis, unspecified site; Z68.37 Body mass index [BMI] 37.0-37.9, adult; Z85.828 Personal history of other malignant neoplasm of skin; Z87.442 Personal history of urinary calculi; Z87.891 Personal history of nicotine dependence; Z88.1 Allergy status to other antibiotic agents; Z88.2 Allergy status to sulfonamides; Z90.49 Acquired absence of other specified parts of digestive tract; Z98.51 Tubal ligation status; Z98.84 Bariatric surgery status
CPT/HCPCS: 74210; 43282; C1781; J1644 ×2; J1100 ×3; J2765 ×2; J0690 ×2; J2405 ×2; J0131 ×2; J1885 ×2; J3010